=== PATIENT | female | born 1960 | race Caucasian/White ===

== ENCOUNTER 2017-10-27 11:10 | Day surgery (SDC) | payer OTHER ==
[2017-10-24 16:09] VITALS: BMI 30.7
[~2017-10-27 11:10] MED LIST: DEXAMETHASONE SOD PHOSPHATE 10 MG/ML 1 ML VIAL IV ONE; HYDROmorphone 0.5 MG/0.5 ML SYRINGE IVP PRN; LACTATED RINGERS 1,000 ML IV SCH; LIDOCAINE 1% 20 ML VIAL (10MG/ML) FOR IV START INTRADERMA PRN; MIDAZOLAM 2 MG/2 ML VIAL IV PRN; ONDANSETRON 4 MG/2 ML VIAL IVP ONE; ONDANSETRON 4 MG/2 ML VIAL IVP PRN; Pre Op ABX Message 1 EACH MISC MISCELLANE ONE; fentaNYL (PF) 50 MCG/ML 2 ML AMP IV PRN
[2017-10-27] MEDS ORDERED: LACTATED RINGERS 1,000 ML IV ONE (11:35)
[2017-10-27] MEDS ORDERED: LIDOCAINE 1% 20 ML VIAL (10MG/ML) FOR IV START INTRADERMA ONE (11:35)
[2017-10-27] MEDS ORDERED: LIDOCAINE 1% INJ 10MG/ML (20 ML MDV) ONE (11:54)
[2017-10-27] MEDS ORDERED: PROPOFOL 10 MG/ML 20 ML VIAL IV ONE (11:54)
[2017-10-27] MEDS ORDERED: fentaNYL (PF) 50 MCG/ML 2 ML AMP ONE (11:54)
[2017-10-27] MEDS ORDERED: MIDAZOLAM 2 MG/2 ML VIAL ONE (11:54)
[2017-10-27] MEDS ORDERED: KETOROLAC 30 MG/ML 1 ML VIAL ONE (11:54)
[2017-10-27] MEDS ORDERED: SODIUM CHLORIDE 0.9% 100 ML with CLINDAMYCIN 600 MG IV ONE ×2 (11:56)
[2017-10-27] MEDS ORDERED: BUPIVACAINE (PF) 0.25% 30 ML VIAL SQ ONE ×2 (12:32)
[2017-10-27 13:04] VITALS: TEMP 97.2
[2017-10-27] MEDS ORDERED: MORPHINE SULFATE 4 MG/ML SYRINGE IV ONE (13:16)
[2017-10-27] MEDS ORDERED: HYDROcodone/APAP 7.5-325MG 1 EACH TAB PO ONE (13:55)
[2017-10-27 14:08] VITALS: RESP 16
[2017-10-27 14:13] VITALS: BP 142/90; PULSE 71
--- NOTE | 2017-10-28 00:34 | OP ---
OPERATIVE REPORT DATE OF PROCEDURE: 10/27/2017 PREOPERATIVE DIAGNOSES: 1. Right knee medial meniscus tear. 2. Right knee lateral meniscus tear. 3. Right knee chondromalacia, medial compartment. POSTOPERATIVE DIAGNOSES: 1. Right knee medial meniscus tear. 2. Right knee lateral meniscus tear. 3. Right knee chondromalacia, medial compartment. PROCEDURE PERFORMED: 1. Right knee arthroscopic partial medial meniscectomy. 2. Right knee arthroscopic partial lateral meniscectomy. 3. Right knee arthroscopic chondroplasty of the medial femoral condyle. SURGEON: Aj Aranda MD. HELP DESK REP: Issac Jonas PA-C. ANESTHESIA: General endotracheal. ESTIMATED BLOOD LOSS: Minimal. TOURNIQUET: None. DRAINS: None. COMPLICATIONS: None apparent. DISPOSITION: Postanesthesia care unit. INDICATIONS: Mónica is a very pleasant 57-year-old female who injured her right knee in a twisting incident. Physical examination and MRI are consistent with tearing of both medial and lateral meniscus, as well as early chondromalacia of the medial compartment and patellofemoral compartment of the knee. I had a long discussion with her with regard to treatment options. At this point, she does wish to proceed with operative intervention. Risks were explained to the patient which include, but are not limited to risk of infection, nerve damage, bleeding, pain and risk of deep vein thrombosis which could lead to fatal pulmonary embolism. The patient understands the risks and wished to proceed with surgical procedure. EXAMINATION UNDER ANESTHESIA: Range of motion right full, left full. Effusion right mild, left none. Balaji right normal good end point, left normal good end point. Pivot shift right grade 0, left grade 0. Posterior drawer right with good end point, left normal good end point. Varus laxity right none, left none. Valgus laxity right none and left none. Rotation right normal and left normal. ARTHROSCOPIC FINDINGS: Suprapatellar pouch normal. Medial gutter normal. Lateral gutter is normal. Patella diffuse grade 2 change about the patella trochlea. Diffuse grade 1-2 change in the central aspect of the trochlea. Patellar tracking was normal. Medial femoral condyle: Large area of grade 3 change with some small punctate areas of grade 4 change on the weightbearing surface of the medial femoral condyle. Medial tibial plateau with diffuse grade 1 change with a small area grade 2 change on the most medial aspect of the medial tibial plateau. The medial meniscus with complex tear posterior horn medial meniscus. Lateral femoral condyle: Diffuse grade 1 change. Lateral tibial plateau: Diffuse grade 2 change. Lateral meniscus: Degenerative tearing of the posterior horn and middle body of the lateral meniscus. Anterior cruciate ligament normal. Posterior cruciate ligament normal. DESCRIPTION OF THE PROCEDURE: Patient identified in preoperative holding area. Surgical sites marked by both the patient and myself. She was given 600 mg of clindamycin IV for prophylactic purposes. She was then transferred to the operative suite. She was placed supine on the operative table. General anesthetic was then administered dosed per the anesthesia without apparent complication. Examination under anesthesia was then performed of both knees. The findings noted above. Tourniquet was then placed high on the right upper thigh well-padded in preparation for surgery. The tourniquet was not inflated throughout the entire procedure. The patient's right lower extremity was then prepped and draped in usual sterile fashion. Standard surgical pause undertaken to ensure that we were operating on the correct site and that appropriate preoperative antibiotics had been given. All staff in the room were in agreement and we proceeded. The knee was then insufflated with 120 mL sterile saline solution. This was done to gradually distend the joint. A standard inferolateral portal was then made. A 30 degree arthroscope was introduced in the suprapatellar pouch. The scope pump pressure was set at 60 mmHg and maintained at that level throughout the entire case. Next utilizing an 18-gauge spinal needle topical localized placement there from inferomedial port was made under direct visualization. A standard diagnostic arthroscopy of the knee was then performed. The findings noted above. Attention first drawn to the lateral compartment. She had degenerative tearing of the posterior horn and midbody of the lateral meniscus. It was quite frayed and macerated. This tear was deemed irreparable. The meniscus tear was then debrided with a combination of biters and shaver back to stable tissue. Approximately 75% of the posterior horn and middle body of the lateral meniscus remained intact after the debridement. The anterior and posterior root attachments were carefully inspected and found to be intact. Attention then drawn to the medial compartment. She did have fairly significant chondromalacia of the weightbearing surface of medial femoral condyle. This was diffuse grade 3 change about the weightbearing surface of the medial femoral condyle with very small areas of punctate grade 4 change. There was loose chondral flaps as well. The loose chondral flaps were carefully debrided with a shaver back to stable cartilage rim. Attention then drawn to the medial meniscus. She had a complex tear of the posterior horn of the medial meniscus. There was a large flap tear component to this as well. This tear was quite macerated and also deemed irreparable. The meniscus tear was then debrided with a combination of biters and a shaver back to stable tissue. Approximately 25% of the posterior horn and middle body of the medial meniscus remained intact after debridement. The anterior and posterior root attachments were carefully inspected and found to be intact. At this point in time no further work was deemed necessary. The knee was thoroughly irrigated and then drained with an outflow cannula. The was removed from the knee. The arthroscopic portals were then closed with 3-0 nylon interrupted suture. Sterile compressive dressings were then applied. All sponge and needle counts were deemed correct prior to closure. The patient tolerated the procedure without apparent complication. The tourniquet was not inflated throughout the entire procedure. She was transferred to the recovery room in stable condition. MMODL / IJN: [id number] /
== END 2017-10-27 14:37 | disposition home or self-care (01) ==
LOC: OR 11:10
PROVIDERS: ATTEND Orthopaedic Surgery Sports Medicine
DX: S83.231A Complex tear of medial meniscus, current injury, right knee, initial encounter (principal); S83.281A Other tear of lateral meniscus, current injury, right knee, initial encounter; M25.461 Effusion, right knee; M94.261 Chondromalacia, right knee; X50.1XXA Overexertion from prolonged static or awkward postures, initial encounter; I10 Essential (primary) hypertension; E03.9 Hypothyroidism, unspecified; I95.9 Hypotension, unspecified; Z79.890 Hormone replacement therapy; Z79.899 Other long term (current) drug therapy; Z88.1 Allergy status to other antibiotic agents; Z88.0 Allergy status to penicillin; Z91.048 Other nonmedicinal substance allergy status; Z87.891 Personal history of nicotine dependence
CPT/HCPCS: 29880; J2250; J2270; J1100; J2405; J2001; J3010; J1885; J2704